=== PATIENT | female | born 1970 | race Caucasian/White ===

== ENCOUNTER 2016-11-03 15:33 | Outpatient (CLI) | payer SELFPAY ==
[~2016-11-03] VITALS: Ht 154.9 cm; Wt 84.7 kg
[~2016-11-03 15:33] MED LIST: CEPH-443 PO; NITR-58 PO; PHEN-537 PO; PHEN-538 PO
[2016-11-03 16:05] VITALS: BP 111/55; PULSE 72; RESP 18; Ht 154.9 cm; Wt 84.7 kg
[2016-11-03] MEDS ORDERED: PRENAT PO (16:05)
--- NOTE | 2016-11-03 16:53 | RADRPT ---
PROCEDURE: US evaluation of placenta and cervix. CLINICAL INDICATION: . Vaginal bleeding. TECHNIQUE: Multiple sonographic images of the gravid uterus were obtained utilizing rivero-scale farhan ging. Sagittal and transverse images were obtained. In addition, transvaginal sonography of the ce rvix was performed. The images were reviewed on a PACS workstation. The placenta was evaluated. COMPARISON: No prior studies are available for comparison. FINDINGS: There is a single live intrauterine . heart rate is 141 beats per minute. Position is cephalic and placenta is anterior grade 1. There is no placenta previa or abruption. Transvaginal imaging demonstrates cervical length of 4.1 cm. The cervix is closed. IMPRESSION: 1. Placenta is anterior with no abruption or previa. 2. Cervical length is 4.1 cm. RPTAT: QQ .Jarrell Bravo MD, Date Time Electronically viewed and signed by .Jarrell Bravo MD, on 11/03/2016 16:53 .R/
--- NOTE | 2016-11-03 17:31 | TRIAGE ---
OB Triage Datetime Report Generated by CPN: 11/03/2016 17:31 Datetime: 11/03/2016 16:02 Assessment Type: Triage Maternal Assessment Level of Consciousness: Fully Conscious DTR's/Clonus: DTRs 2+; No Clonus Headache: Denies Blurred Vision: No Respiratory Effort: Unlabored; Regular Rhythm; Equal Expansion Breath Sounds, Left: Clear and Equal Breath Sounds, Right: Clear and Equal Nausea/Vomiting: Denies RUQ Epigastric Pain: Denies Lower Extremities Edema: None Degree: None Upper Extremities Edema: None Degree: None Facial Edema: None Fall Risk Assessment History of Falling: (0) No Secondary Diagnosis: (0) No Ambulatory Aid: (0) Bedrest/Nurse Assist IV Therapy: (0) No Gait: (0) Normal/Bedrest/Immobile Mental Status: (0) Oriented to Own Ability Fall Score: 0 Fall Risk Score Definition: No Risk: No action required Datetime: 11/03/2016 15:57 Time of Arrival: 11/03/2016 15:30 EGA: 30.3 Arrived By: Ambulatory Arrived From: Home Chief Complaint: pt sent from CLINIC FOR C/O VAG. BLEED Movement: Present Contractions: Denies/Absent Rupture of Membranes: Denies Vaginal Bleeding: None Vaginal Discharge: Denies Recent Sexual Intercouse: Denies Abdominal Trauma: Not Applicable Patient Complaints: None Provider Notified: HARSHAD Initial Plan: EFM, CVL, PLACENTA LOCATION
== END 2016-11-03 17:45 | disposition home or self-care (01) ==
LOC: OBT 15:33 → L-D 15:33 → OBT 17:45
PROVIDERS: ATTEND Obstetrics & Gynecology
DX: O60.03 Preterm labor without delivery, third trimester (principal); Z3A.30 30 weeks gestation of pregnancy
CPT/HCPCS: 76815; 76817; G0463

== ENCOUNTER 2017-01-16 06:46 | Inpatient (IN) | payer OTHER ==
[~2017-01-16] VITALS: Ht 157.5 cm; Wt 63.3 kg
[~2017-01-16 06:46] MED LIST changes: -CEPH-443 PO; -NITR-58 PO; -PHEN-537 PO; -PHEN-538 PO; +PRENAT PO
[2017-01-16 07:17] VITALS: Ht 157.5 cm; Wt 63.3 kg
[2017-01-16] MEDS: LACTATED RINGER'S 1,000 ML IV SCH ×2 (07:28→12:41)
[2017-01-16 07:30] VITALS: BP 144/80; PULSE 68; RESP 17
[2017-01-16] MEDS ORDERED: LIDOCAINE 1% (MPF) 30 ML INJ INJ PRN (07:30)
[2017-01-16] MEDS ORDERED: IBUPROFEN 600 MG TAB PO PRN (07:30)
[2017-01-16] MEDS ORDERED: OXYTOCIN 30 UNITS/LR 500 ML IV SCH ×2 (07:30)
[2017-01-16] MEDS ORDERED: MISOPROSTOL 200 MCG TAB PR PRN (07:30)
[2017-01-16] MEDS ORDERED: METHYLERGONOVINE 0.2 MG INJ IM PRN (07:30)
[2017-01-16] MEDS ORDERED: CARBOPROST 250 MCG INJ IM PRN (07:30)
[2017-01-16] MEDS ORDERED: LACTATED RINGER'S 1,000 ML IV PRN (07:30)
[2017-01-16] MEDS ORDERED: OXYTOCIN 30 UNITS/LR 500 ML IV PRN (07:30)
[2017-01-16 07:36] LABS: ADD SCAN DIFF NO
[2017-01-16 07:39] LABS: BASOPHILS % 0.2 % (0.0-2.0); EOSINOPHILS # 0.1 10^3/ul (0.0-0.5); EOSINOPHILS % 1.1 % (0.0-7.0); HEMATOCRIT 36.2 % (37.0-47.0); HEMOGLOBIN 11.9 g/dl (12.0-16.0); LYMPHOCYTES # 1.5 10^3/ul (0.8-2.9); MEAN CORPUSCULAR HEMOGLOBIN 26.9 pg (29.0-33.0); MEAN CORPUSCULAR HGB CONC 32.9 g/dl (32.0-37.0); MEAN CORPUSCULAR VOLUME 81.7 fl (82.0-101.0); MEAN PLATELET VOLUME 11.9 fl (7.4-10.4); MONOCYTE # 0.7 10^3/ul (0.3-0.9); MONOCYTES % 6.7 % (0.0-11.0); NEUTROPHIL # 8.3 10^3/ul (1.6-7.5); NEUTROPHILS % 77.6 % (39.0-77.0); PLATELET COUNT 211 10^3/UL (140-415); RED BLOOD COUNT 4.43 10^6/ul (4.20-5.40); RED CELL DISTRIBUTION WIDTH 14.6 % (11.5-14.5); WHITE BLOOD COUNT 10.7 10^3/ul (4.8-10.8)
[2017-01-16 07:56] LABS: INR 0.92; PROTIME 12.4 Sec (12.2-14.2)
[2017-01-16 07:57] LABS: PARTIAL THROMBOPLASTIN TIME 28.5 Sec (25.0-35.0)
[2017-01-16] MEDS ORDERED: FENTAnyl 2MCG/ML-ROPIV 0.2% 100 ML ONE (09:25)
--- NOTE | 2017-01-16 14:43 | LDN ---
Date/Time of Note Date/Time of Note DATE: 01/16/17 TIME: 14:39 Delivery Summary Normal spontaneous vaginal delivery of a baby girl from LEYDA position shoulders delivered without any difficulties rest of the baby's body follow cord clamped after stopped pulsation placenta spontaneous expulsion inspected complete no perineal vaginal laceration estimated blood loss 200 mL Weeks of Gestation 41 weeks and 1 day Placenta Delivered: Spontaneously Meconium: none Episiotomy: No Anesthesia type: Epidural Estimated blood loss: 200 Sponge & Needle done & correct: Yes All needle counts correct: Yes Any foreign bodies felt in the: No Problems: Delivery Information Sex Infant Sex: female Apgars 1 Minute: 8 5 Minute: 9 Suctioning Nose & mouth suctioned at geovanny: Yes Delee suction performed: No Umbilical Cord Umbilical cord with: 3 Vessels Cord presentations: nuchal cord Nuchal cord present X: 2 Cord Blood was obtained: Yes PETERSON PATRICIA MD January 16, 2017 14:43
--- NOTE | 2017-01-16 14:55 | HP ---
Date/Time of Note Date/Time of Note DATE: 01/16/17 TIME: 14:48 OB - History Hx of Present Free Text/Dictation 46 years old female 4 para 3 41 weeks admitted to [facility] in labor pelvic examination on admission cervical dilatation 2 cm 90% effacement vertex at -1 station with bulging bag artificial rupture of membrane was performed at the time of the examination ,at this point patient is melody every 3-5 minutes with category 1 heart tracing Past Family/Social History * Past Medical, Surgical, Family and Obstetric Histories reviewed from chart. OB Admission Exam Vital Signs Vital Signs Vital Signs Date Time Temp Pulse Resp B/P Pulse Ox O2 Delivery O2 Flow Rate FiO2 01/16/17 07:30 98.1 68 17 144/80 99 Room Air Physical Exam HEENT: WNL Heart: Rhythm Normal Lungs: Clear Abdomen: WNL Extremities: Normal Reflexes: Normal Cervical Dilatation: 2cm Effacement: 100% Station: -1 Membranes: Intact Amniotic Fluid: Clear Heart Rate: 130's Accelerations: Accelerations Present Decelerations: No Decelerations Varibility: Moderate Contractions on Admission: < 5 Minutes Apart Intensity: Moderate Last 72 hours Lab Results CBC & BMP 01/16/17 07:20 OB Assessment/Plan Reason for admission: active labor Plan: Expectant Management PETERSON PATRICIA MD January 16, 2017 14:55
[2017-01-16 16:47] VITALS: BP 126/66; PULSE 76; RESP 16
[2017-01-16] MEDS ORDERED: ACETAMINOPHEN 325 MG TAB PO PRN (18:00)
[2017-01-16] MEDS ORDERED: ONDANSETRON 4 MG INJ IV PRN (18:00)
[2017-01-16] MEDS ORDERED: WITCH HAZEL/GLYCERIN PAD PR PRN (18:00)
[2017-01-16] MEDS ORDERED: ACETAMINOPHEN/CODEINE #3 TAB PO PRN ×2 (18:00)
[2017-01-16] MEDS ORDERED: OXYCODONE/ASPIRIN (4.88/325) TAB PO PRN ×2 (18:00)
[2017-01-16] MEDS ORDERED: LANOLIN 7 GM TUBE TOP PRN (18:00)
[2017-01-16] MEDS ORDERED: DIBUCAINE 1% 30 GM OINT PR PRN (18:00)
[2017-01-16] MEDS ORDERED: BENZOCAINE 20% 56 ML SPRAY TOP PRN (18:00)
[2017-01-16] MEDS: IBUPROFEN 600 MG TAB PO SCH (18:27)
[2017-01-16] MEDS: OXYTOCIN 30 UNITS/LR 500 ML IV SCH ×2 (19:02→21:59)
[2017-01-16 20:25] VITALS: BP 116/58; PULSE 78; RESP 18
[2017-01-17] MEDS: IBUPROFEN 600 MG TAB PO SCH ×4 (00:09→17:24)
[2017-01-17 00:10] VITALS: BP 100/57; PULSE 66; RESP 18
[2017-01-17 04:00] VITALS: BP 106/55; PULSE 66; RESP 18
[2017-01-17 07:27] LABS: ADD SCAN DIFF NO
[2017-01-17 07:39] LABS: BASOPHILS % 0.3 % (0.0-2.0); EOSINOPHILS # 0.1 10^3/ul (0.0-0.5); HEMATOCRIT 32.8 % (37.0-47.0); HEMOGLOBIN 10.9 g/dl (12.0-16.0); LYMPHOCYTES % 15.3 % (15.0-51.0); MEAN CORPUSCULAR HEMOGLOBIN 27.3 pg (29.0-33.0); MEAN CORPUSCULAR HGB CONC 33.2 g/dl (32.0-37.0); MEAN CORPUSCULAR VOLUME 82.2 fl (82.0-101.0); MEAN PLATELET VOLUME 12.2 fl (7.4-10.4); MONOCYTE # 1.2 10^3/ul (0.3-0.9); MONOCYTES % 8.9 % (0.0-11.0); NEUTROPHIL # 9.8 10^3/ul (1.6-7.5); PLATELET COUNT 198 10^3/UL (140-415); RED BLOOD COUNT 3.99 10^6/ul (4.20-5.40); RED CELL DISTRIBUTION WIDTH 14.7 % (11.5-14.5); WHITE BLOOD COUNT 13.3 10^3/ul (4.8-10.8)
[2017-01-17 08:30] VITALS: BP 125/74; PULSE 68; RESP 17
[2017-01-17] MEDS: SENNA/DOCUSATE NA (8.6MG/50MG) TAB PO SCH ×2 (09:51→21:38)
[2017-01-17 16:26] VITALS: BP 132/74; PULSE 64; RESP 18
--- NOTE | 2017-01-17 16:39 | PN ---
Date/Time of Note Date/Time of Note DATE: 01/17/17 TIME: 16:35 OB Subjective Subjective Subjective day 1 Afebrile vital signs are stable abdomen soft uterus firm lochia normal extremity normal Laboratory Tests Test 01/17/17 06:43 White Blood Count 13.310^3/ul Red Blood Count 3.9910^6/ul Hemoglobin 10.9g/dl Hematocrit 32.8% Mean Corpuscular Volume 82.2fl Mean Corpuscular Hemoglobin 27.3pg Mean Corpuscular Hemoglobin Concent 33.2g/dl Red Cell Distribution Width 14.7% Platelet Count 45358^3/UL Mean Platelet Volume 12.2fl Neutrophils % 74.0% Lymphocytes % 15.3% Monocytes % 8.9% Eosinophils % 1.0% Basophils % 0.3% Nucleated Red Blood Cells % 0.0/100WBC Neutrophils # 9.810^3/ul Lymphocytes # 2.010^3/ul Monocytes # 1.210^3/ul Eosinophils # 0.110^3/ul Basophils # 0.010^3/ul Nucleated Red Blood Cells # 0.010^3/ul Current Medications Medications (Trade) Dose Ordered Sig/Chu Route PRN Reason Start Time Stop Time Status Last Admin Dose Admin Lactated Ringer's (Lr) 1,000 ml @ 125 mls/hr Q8H IV 01/16/17 07:18 01/16/17 18:02 DC 01/16/17 12:41 Lidocaine 30 ml 30 ml ONCE PRN INJ EPISIOTOMY/TEARING 01/16/17 07:30 01/16/17 18:02 DC Oxytocin/Lactated Ringer's 500 ml @ 125 mls/hr ONCE -MAY REPEAT X1 IV 01/16/17 07:30 01/16/17 18:02 DC 01/16/17 14:45 Oxytocin/Lactated Ringer's 500 ml @ 125 mls/hr ONCE IV 01/16/17 07:30 01/16/17 18:02 DC 01/16/17 14:46 Ibuprofen 600 mg 600 mg ONCE PRN PO Mild Pain (Pain Score 1-3) 01/16/17 07:30 01/16/17 18:02 DC Lactated Ringer's 1,000 ml @ 2,000 mls/hr Q30M PRN IV PRE-EPIDURAL BOLUS 01/16/17 07:30 5/7/17 18:02 DC 01/16/17 08:12 Oxytocin/Lactated Ringer's 500 ml @ 0 mls/hr ONCE PRN IV For Hemorrhage Management 01/16/17 07:30 01/16/17 18:02 DC Methylergonovine Maleate (Methergine) 0.2 mg ONCE PRN IM VAGINAL BLEEDING 01/16/17 07:30 01/16/17 18:02 DC Carboprost Tromethamine (Hemabate) 250 mcg ONCE PRN IM VAGINAL BLEEDING 01/16/17 07:30 01/16/17 18:02 DC Misoprostol 1000 mcg 1,000 mcg ONCE PRN [place] VAGINAL BLEEDING 01/16/17 07:30 01/16/17 18:02 DC Fentanyl/ Ropivacaine 100 ml @ ud STK-MED ONCE .ROUTE 01/16/17 09:25 01/16/17 09:26 DC Oxytocin/Lactated Ringer's 500 ml @ 125 mls/hr Q4H IV 01/16/17 17:59 01/17/17 01:58 DC 01/16/17 19:02 Ibuprofen (Motrin) 600 mg Q6 PO 01/16/17 18:00 01/17/17 12:12 Acetaminophen (Tylenol Tab) 650 mg Q4H PRN PO PAIN LEVEL 1-5 01/16/17 18:00 Acetaminophen/ Codeine Phosphate (Tylenol No.3) 1 tab Q4H PRN PO PAIN LEVEL 1-5 01/16/17 18:00 Acetaminophen/ Codeine Phosphate (Tylenol No.3) 2 tab Q4H PRN PO PAIN LEVEL 6-10 01/16/17 18:00 Oxycodone/Aspirin (Percodan) 1 tab Q3H PRN PO PAIN LEVEL 1-5 01/16/17 18:00 Oxycodone/Aspirin (Percodan) 2 tab Q3H PRN PO PAIN LEVEL 6-10 01/16/17 18:00 Ondansetron HCl (Zofran Inj) 4 mg Q6H PRN IV NAUSEA AND/OR VOMITING 01/16/17 18:00 Senna/Docusate Sodium (Senokot-S) 1 tab BID PO 01/17/17 09:00 01/17/17 09:51 [place]/ Glycerin (Tucks Pads) 1 pad BEDSIDE MEDICATION PRN [place] HEMORRHOID/EPISIOTMY PAIN 01/16/17 18:00 01/16/17 18:28 Benzocaine (Dermoplast [place]) 1 spray BEDSIDE MEDICATION PRN TOP HEMORRHOID/EPISIOTMY PAIN 01/16/17 18:00 01/16/17 18:27 Dibucaine (Nupercainal) 1 applic BEDSIDE MEDICATION PRN [place] HEMORRHOID/EPISIOTMY PAIN 01/16/17 18:00 01/16/17 18:28 Lanolin ([id number]-G-[id number]) 1 applic BEDSIDE MEDICATION PRN TOP BEDSIDE FOR ARSENIO TO NIPPLES 01/16/17 18:00 01/16/17 18:27 Measles/Mumps/ Rubella Vaccine Live (Mmr Ii Vaccine) 0.5 ml ONCE ONCE SC* 01/18/17 09:00 01/18/17 09:01 PETERSON PATRICIA MD January 17, 2017 16:39
[2017-01-17 19:50] VITALS: BP 131/77; PULSE 71; RESP 18
[2017-01-18] MEDS: IBUPROFEN 600 MG TAB PO SCH ×3 (00:38→12:26)
[2017-01-18 04:00] VITALS: BP 116/63; RESP 17
[2017-01-18 08:00] VITALS: BP 114/66; PULSE 60; RESP 16
[2017-01-18] MEDS: SENNA/DOCUSATE NA (8.6MG/50MG) TAB PO SCH (08:14)
[2017-01-18] MEDS ORDERED: MEASLES,MUMPS,RUBELLA VACCINE INJ SC* ONE (09:00)
--- NOTE | 2017-01-18 09:46 | RADRPT ---
PROCEDURE: Ultrasound of the bilateral lower extremity venous system. CLINICAL INDICATION: Bilateral leg pain and swelling, deep venous thrombosis TECHNIQUE: Isidro scale with and without compression, color doppler, spectral doppler of the venous system of the bilateral lower extremities was performed. Venous augmentation maneuvers were utilized . COMPARISON: No prior studies are available for comparison. FINDINGS: RIGHT: Common femoral vein: Patent. Femoral vein: Patent. Popliteal vein: Patent. Calf veins: Patent. No soft tissue abnormalities are identified. LEFT: Common femoral vein: Patent. Femoral vein: Patent. Popliteal vein: Patent. Calf veins: Patent. No soft tissue abnormalities are identified. IMPRESSION: No evidence of a deep vein thrombosis within the bilateral lower extremities. RPTAT: AADD .Riaz Merlos MD, MD Date Time Electronically viewed and signed by .Riaz Merlos MD, on 01/18/2017 09:46 .B/
--- NOTE | 2017-01-18 15:32 | DS ---
Date/Time of Note Date/Time of Note Current Medications Medications (Trade) Dose Ordered Sig/Chu Route PRN Reason Start Time Stop Time Status Last Admin Dose Admin Lactated Ringer's (Lr) 1,000 ml @ 125 mls/hr Q8H IV 01/16/17 07:18 01/16/17 18:02 DC 01/16/17 12:41 Lidocaine 30 ml 30 ml ONCE PRN INJ EPISIOTOMY/TEARING 01/16/17 07:30 01/16/17 18:02 DC Oxytocin/Lactated Ringer's 500 ml @ 125 mls/hr ONCE -MAY REPEAT X1 IV 01/16/17 07:30 01/16/17 18:02 DC 01/16/17 14:45 Oxytocin/Lactated Ringer's 500 ml @ 125 mls/hr ONCE IV 01/16/17 07:30 01/16/17 18:02 DC 01/16/17 14:46 Ibuprofen 600 mg 600 mg ONCE PRN PO Mild Pain (Pain Score 1-3) 01/16/17 07:30 01/16/17 18:02 DC Lactated Ringer's 1,000 ml @ 2,000 mls/hr Q30M PRN IV PRE-EPIDURAL BOLUS 01/16/17 07:30 01/16/17 18:02 DC 01/16/17 08:12 Oxytocin/Lactated Ringer's 500 ml @ 0 mls/hr ONCE PRN IV For Hemorrhage Management 01/16/17 07:30 01/16/17 18:02 DC Methylergonovine Maleate (Methergine) 0.2 mg ONCE PRN IM VAGINAL BLEEDING 01/16/17 07:30 01/16/17 18:02 DC Carboprost Tromethamine (Hemabate) 250 mcg ONCE PRN IM VAGINAL BLEEDING 01/16/17 07:30 01/16/17 18:02 DC Misoprostol 1000 mcg 1,000 mcg ONCE PRN [place] VAGINAL BLEEDING 01/16/17 07:30 01/16/17 18:02 DC Fentanyl/ Ropivacaine 100 ml @ ud STK-MED ONCE .ROUTE 01/16/17 09:25 01/16/17 09:26 DC Oxytocin/Lactated Ringer's 500 ml @ 125 mls/hr Q4H IV 01/16/17 17:59 01/17/17 01:58 DC 01/16/17 19:02 Ibuprofen (Motrin) 600 mg Q6 PO 01/16/17 18:00 01/18/17 12:26 Acetaminophen (Tylenol Tab) 650 mg Q4H PRN PO PAIN LEVEL 1-5 01/16/17 18:00 Acetaminophen/ Codeine Phosphate (Tylenol No.3) 1 tab Q4H PRN PO PAIN LEVEL 1-5 01/16/17 18:00 Acetaminophen/ Codeine Phosphate (Tylenol No.3) 2 tab Q4H PRN PO PAIN LEVEL 6-10 01/16/17 18:00 01/18/17 08:16 Oxycodone/Aspirin (Percodan) 1 tab Q3H PRN PO PAIN LEVEL 1-5 01/16/17 18:00 Oxycodone/Aspirin (Percodan) 2 tab Q3H PRN PO PAIN LEVEL 6-10 01/16/17 18:00 Ondansetron HCl (Zofran Inj) 4 mg Q6H PRN IV NAUSEA AND/OR VOMITING 01/16/17 18:00 Senna/Docusate Sodium (Senokot-S) 1 tab BID PO 01/17/17 09:00 01/18/17 08:14 [place]/ Glycerin (Tucks Pads) 1 pad BEDSIDE MEDICATION PRN [place] HEMORRHOID/EPISIOTMY PAIN 01/16/17 18:00 01/16/17 18:28 Benzocaine (Dermoplast [place]) 1 spray BEDSIDE MEDICATION PRN TOP HEMORRHOID/EPISIOTMY PAIN 01/16/17 18:00 01/16/17 18:27 Dibucaine (Nupercainal) 1 applic BEDSIDE MEDICATION PRN [place] HEMORRHOID/EPISIOTMY PAIN 01/16/17 18:00 01/16/17 18:28 Lanolin (Rlc-B-Pigpys) 1 applic BEDSIDE MEDICATION PRN TOP BEDSIDE FOR ARSENIO TO NIPPLES 01/16/17 18:00 01/16/17 18:27 Measles/Mumps/ Rubella Vaccine Live (Mmr Ii Vaccine) 0.5 ml ONCE ONCE SC* 01/18/17 09:00 01/18/17 09:01 DC DATE: 01/18/17 TIME: 15:29 Obstetrical Discharge Record Final Diagnosis Final Diagnosis: Term delivered Vaginal Delivery Obstetrical Delivery: Spontaneous Condition on Discharge Physical Assessment Voiding: Yes Bowel Movement: Yes Breast: Soft, non-tender Fundus: Firm Calf Tenderness: No Patient Condition: Good FARZANA MEJIA MD January 18, 2017 15:31
== END 2017-01-18 19:03 | disposition home or self-care (01) | DRG 775 ==
LOC: OBT 06:46 → L-D 06:46 → OBT 07:09 → L-D 07:11 → PP1 16:40
PROVIDERS: ADMIT Obstetrics & Gynecology; ATTEND Obstetrics & Gynecology
PROC: 10E0XZZ Delivery of Products of Conception, External Approach (ICD-10-PCS; principal; 2017-01-16)
DX: O48.0 Post-term pregnancy (principal); O69.1XX0 Labor and delivery complicated by cord around neck, with compression, not applicable or unspecified; Z3A.41 41 weeks gestation of pregnancy; Z37.0 Single live birth
CPT/HCPCS: 62319; 85025; 85610; 85730; 86592; 86900; 86901; 87340; 93970; G0463; J2590; J3010; J7120